=== PATIENT | female | born 1990 | race Caucasian/White ===

== ENCOUNTER 2017-02-22 17:15 | Emergency (ER) | payer OTHER ==
[2017-02-22] MEDS ORDERED: HYDROcodone/Acetaminophen 10/325 mg Tablet ONE (17:47)
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
== END 2017-02-22 18:30 | disposition home or self-care (01) ==
LOC: MADERS 17:15
DX: S70.00XA Contusion of unspecified hip, initial encounter (principal); F41.9 Anxiety disorder, unspecified; V89.2XXA Person injured in unspecified motor-vehicle accident, traffic, initial encounter
CPT/HCPCS: 72100; 72125